=== PATIENT | female | born 1970 | race African-American/Black ===

== ENCOUNTER 2016-09-15 00:16 | Emergency (ER) | payer SELFPAY | END 2016-09-15 01:05 | disposition home or self-care (01) | LOC: NAV ERS 00:16 | DX: S39.012A Strain of muscle, fascia and tendon of lower back, initial encounter (principal); F17.210 Nicotine dependence, cigarettes, uncomplicated; X50.0XXA Overexertion from strenuous movement or load, initial encounter | CPT/HCPCS: 96372 ==

== ENCOUNTER 2021-04-16 16:09 | Emergency (ER) | payer SELFPAY | END 2021-04-16 16:50 | disposition home or self-care (01) | LOC: NAV ERS 16:09 | DX: M65.4 Radial styloid tenosynovitis [de Quervain] (principal); F17.210 Nicotine dependence, cigarettes, uncomplicated | CPT/HCPCS: 99283 ==

== ENCOUNTER 2025-02-19 08:19 | Emergency (ER) | payer OTHER, SELFPAY ==
[2025-02-19] MEDS ORDERED: Ibuprofen 800 MG TAB ONE (09:07)
== END 2025-02-19 09:18 | disposition home or self-care (01) ==
LOC: NAV ERS 08:19
DX: M25.462 Effusion, left knee (principal); I10 Essential (primary) hypertension; F17.200 Nicotine dependence, unspecified, uncomplicated
CPT/HCPCS: 99283